=== PATIENT | male | born 1955 | race Caucasian/White ===

== ENCOUNTER 2016-08-08 20:32 | Emergency (ER) | payer SELFPAY ==
[~2016-08-08] VITALS: Ht 185.4 cm; Wt 75.0 kg
[~2016-08-08 20:32] MED LIST: FERR325T PO; MELO15TA2 PO; MIRA0.12 PO; OMEP20TA39 PO; VIAG100T PO
[2016-08-08 20:34] VITALS: BP 141/83; PULSE 74; RESP 16; TEMP 98.3; O2SAT 100
[2016-08-08] MEDS ORDERED: MEDR4PAK PO (21:20)
--- NOTE | 2016-08-08 21:20 | PD ---
HPI Chief Complaint: Skin Problem Time Seen by Provider: 21:17 Travel History International Travel<30 days: No Contact w/Intl Traveler<30days: No Traveled to known affect area: No History of Present Illness HPI 60-year-old male presents to the emergency department for evaluation of a skin eruption. Patient states it has been worsening over the last several weeks. It is scaly in nature. Plaques range in size. They're on his trunk, and extremities. He does not have a primary care provider nor has he sought dermatology evaluation. Denies any fever or chills. No new exposures. No chest or tightness. Patient has no significant medical history. He has no other symptoms to report. PFSH Past Medical History Cancer: No Cardiovascular Problems: Yes Diminished Hearing: No Endocrine: No Genitourinary: No Hypertension: Yes Immune Disorder: No Implanted Vascular Access Dvce: Yes Musculoskeletal: No Neurologic: Yes Psychiatric: No Reproductive: No Respiratory: No Integumentary: Yes (psoriasis) Past Surgical History Eye Surgery: Yes (lenses put in both eyes) Tonsillectomy: Yes Other Surgery: Yes Social History Alcohol Use: No ("SIX PACK OF BEER A DAY" QUIT 1 WK. AGO) Tobacco Use: Yes ("ONE PACK OF CIGARETTES A DAY") Substance Use: No Allergies-Medications (Allergen,Severity, Reaction): Coded Allergies: [place] (Verified Allergy, Intermediate, WEAKNESS, 08/08/16) Reported Meds & Prescriptions Reported Meds & Active Scripts Active Medrol Dosepak (Methylprednisolone) 4 Mg Dspk 4 Mg PO DIRECTED Per Pharmacist direction Omeprazole (Omeprazole) 20 Mg Tab 20 Mg PO DAILY Viagra (Sildenafil Citrate) 100 Mg Tab 100 Mg PO DIRECTED Take 1-4 hours prior to intercourse Mobic (Meloxicam) 15 Mg Tab 15 Mg PO DAILY PRN Iron (Ferrous Sulfate) 325 Mg Tab 325 Mg PO BID Mirapex (Pramipexole Dihydrochloride) 0.125 Mg Tab 0.125 Mg PO HS Review of Systems Except as stated in HPI: all other systems reviewed are Neg Physical Exam Narrative GENERAL: Well-nourished male patient, no acute distress SKIN: Warm and dry. Scattered scaly plaque like lesions, varying in size over the trunk and extremities. Mild erythema but blanchable. Duration. No vesicle or pustular formation. No drainage. HEAD: Atraumatic. Normocephalic. EYES: Pupils equal and round. No scleral icterus. No injection or drainage. ENT: No nasal bleeding or discharge. Mucous membranes pink and moist. NECK: Trachea midline. No JVD. CARDIOVASCULAR: Regular rate and rhythm. No murmur appreciated. RESPIRATORY: No accessory muscle use. Clear to auscultation. Breath sounds equal bilaterally. GASTROINTESTINAL: Abdomen soft, non-tender, nondistended. Hepatic and splenic margins not palpable. MUSCULOSKELETAL: No obvious deformities. No clubbing. No cyanosis. No edema. NEUROLOGICAL: Awake and alert. No obvious cranial nerve deficits. Motor grossly within normal limits. Normal speech. PSYCHIATRIC: Appropriate mood and affect; insight and judgment normal. Data Data Last Documented VS Vital Signs Date Time Temp Pulse Resp B/P Pulse Ox O2 Delivery O2 Flow Rate FiO2 08/08/16 20:34 98.3 74 16 141/83 100 MDM Medical Decision Making Medical Screen Exam Complete: Yes Emergency Medical Condition: Yes Medical Record Reviewed: Yes Differential Diagnosis Psoriasis versus contact dermatitis versus fungal infection versus erysipelas versus carcinoma Narrative Course 60-year-old male presents to the emergency department for evaluation. Patient has a scaly plaque-like eruption over his trunk and extremities. This is more consistent with a psoriasis however I have encouraged patient to follow-up with dermatology for further evaluation. He agrees to return immediately with any acute worsening symptoms. Diagnosis Primary Impression: Scaly patch rash Referrals: [facility] Phys[facility] Patient Instructions: General Instructions, Psoriasis (ED) Additional Instructions: Follow-up with primary care provider Seek dermatology evaluation Did not scratch at or pick your rash You may want to attempt an [id number] antifungal. Use as directed on the package Return immediately to the emergency department with any acute worsening of symptoms Med/Other Pt SpecificInfo: Prescription(s) given Scripts Methylprednisolone Dosepak (Medrol Dosepak)4 Mg Dspk4 Mg PO DIRECTED #1 DSPK Ref 0 Per Pharmacist direction Prov:Isamar Arnold 08/08/16 Disposition: 01 DISCHARGE HOME Condition: Stable Isamar Arnold Aug 08, 2016 21:20
== END 2016-08-08 21:28 | disposition home or self-care (01) ==
LOC: NEPB 20:32
DX: R21 Rash and other nonspecific skin eruption (principal); L40.9 Psoriasis, unspecified; I10 Essential (primary) hypertension
CPT/HCPCS: 99283

== ENCOUNTER 2017-10-20 14:38 | Emergency (ER) | payer SELFPAY ==
[~2017-10-20 14:38] MED LIST changes: +MEDR4PAK PO
[2017-10-20 14:43] VITALS: BP_SYST 101; BP_DIAS 56; BP_DIAS 6; PULSE 100; RESP 16; O2SAT 97
[2017-10-20] MEDS ORDERED: SODIUM CHLOR 0.9% 1000 ML INJ 1,000 ML IV SCH (17:47)
[2017-10-20] MEDS ORDERED: SODIUM CHLORIDE 0.9% FLUSH 10 ML FLUSH IV FLUSH PRN (18:00)
--- NOTE | 2017-10-20 18:01 | PD ---
HPI Chief Complaint: Medical Clearance Time Seen by Provider: 17:42 Travel History International Travel<30 days: No Contact w/Intl Traveler<30days: No Traveled to known affect area: No History of Present Illness HPI Patient is a 61-year-old male presenting to the emergency department for evaluation. Patient states that he "does not feel good". He reports generalized pain. He denies any shortness of breath, abdominal pain, nausea, vomiting. He reports a history of alcoholism but he states he has not had anything to drink since yesterday. Patient is not forthcoming with any further information. He does state that he is tired. PFSH Past Medical History Cardiovascular Problems: Yes Genitourinary: No Hypertension: Yes Immune Disorder: No Implanted Vascular Access Dvce: Yes Musculoskeletal: No Neurologic: Yes Psychiatric: No Reproductive: No Respiratory: No Integumentary: Yes (psoriasis) Past Surgical History Eye Surgery: Yes (lenses put in both eyes) Tonsillectomy: Yes Other Surgery: Yes Social History Alcohol Use: No ("SIX PACK OF BEER A DAY" QUIT 1 WK. AGO) Tobacco Use: Yes ("ONE PACK OF CIGARETTES A DAY") Substance Use: No Allergies-Medications (Allergen,Severity, Reaction): Coded Allergies: lithium (Unverified Allergy, Intermediate, WEAKNESS, 02/14/17) Reported Meds & Prescriptions Reported Meds & Active Scripts Active Medrol Dosepak (Methylprednisolone) 4 Mg Dspk 4 Mg PO DIRECTED Per Pharmacist direction Review of Systems Except as stated in HPI: all other systems reviewed are Neg General / Constitutional: Positive: Other (Fatigue) Musculoskeletal: Positive: Myalgias Physical Exam Narrative GENERAL: Thin, well-developed, drowsy male. SKIN: Warm and dry. HEAD: Atraumatic. Normocephalic. EYES: Pupils equal and round. No scleral icterus. No injection or drainage. ENT: No nasal bleeding or discharge. Mucous membranes pink and moist. NECK: Trachea midline. No JVD. CARDIOVASCULAR: Slightly tachycardic RESPIRATORY: No accessory muscle use. Clear to auscultation. Breath sounds equal bilaterally. GASTROINTESTINAL: Abdomen soft, non-tender, nondistended. Hepatic and splenic margins not palpable. MUSCULOSKELETAL: Extremities without clubbing, cyanosis, or edema. No obvious deformities. NEUROLOGICAL: Drowsy but arousable no obvious cranial nerve deficits. Motor grossly within normal limits. Five out of 5 muscle strength in the arms and legs. Normal speech. PSYCHIATRIC: Flat mood and affect; insight and judgment normal. Data Data Last Documented VS Vital Signs Date Time Temp Pulse Resp B/P (MAP) Pulse Ox O2 Delivery O2 Flow Rate FiO2 10/20/17 18:52 75 16 99 Room Air 10/20/17 14:43 101/56 (71) Orders Orders Complete Blood Count With Diff (10/20/17 14:46) Comprehensive Metabolic Panel (10/20/17 14:46) Drug Screen, Random Urine (10/20/17 14:46) Alcohol (Ethanol) (10/20/17 14:46) Salicylates (Aspirin) (10/20/17 14:46) Tylenol (Acetaminophen) (10/20/17 14:46) Lipase (10/20/17 17:47) Prothrombin Time / Inr (Pt) (10/20/17 17:47) Act Partial Throm Time (Ptt) (10/20/17 17:47) Urinalysis - C+S If Indicated (10/20/17 17:47) Iv Access Insert/Monitor (10/20/17 17:47) Ecg Monitoring (10/20/17 17:47) Oximetry (10/20/17 17:47) Sodium Chlor 0.9% 1000 Ml Inj (Ns 1000 M (10/20/17 17:47) Sodium Chloride 0.9% Flush (Ns Flush) (10/20/17 18:00) Creatine Kinase (Cpk) (10/20/17 17:47) Sodium Chlor 0.9% 1000 Ml Inj (Ns 1000 M (10/20/17 18:45) Labs Laboratory Tests Test 10/20/17 17:58 10/20/17 18:36 White Blood Count 6.1 TH/MM3 Red Blood Count 3.84 MIL/MM3 Hemoglobin 12.4 GM/DL Hematocrit 36.8 % Mean Corpuscular Volume 95.9 FL Mean Corpuscular Hemoglobin 32.3 PG Mean Corpuscular Hemoglobin Concent 33.7 % Red Cell Distribution Width 15.0 % Platelet Count 102 TH/MM3 Mean Platelet Volume 8.7 FL Neutrophils (%) (Auto) 65.1 % Lymphocytes (%) (Auto) 20.5 % Monocytes (%) (Auto) 12.4 % Eosinophils (%) (Auto) 1.5 % Basophils (%) (Auto) 0.5 % Neutrophils # (Auto) 3.9 TH/MM3 Lymphocytes # (Auto) 1.2 TH/MM3 Monocytes # (Auto) 0.8 TH/MM3 Eosinophils # (Auto) 0.1 TH/MM3 Basophils # (Auto) 0.0 TH/MM3 CBC Comment DIFF FINAL Differential Comment Urine Color LIGHT-BROWN Urine Turbidity CLEAR Urine pH 7.0 Urine Specific [place] 1.017 Urine Protein 30 mg/dL Urine Glucose (UA) NEG mg/dL Urine Ketones NEG mg/dL Urine Occult Blood NEG Urine Nitrite NEG Urine Bilirubin SMALL Urine Urobilinogen 8.0 MG/DL Urine Leukocyte Esterase MOD Urine WBC 5 /hpf Urine Squamous Epithelial Cells 1 /hpf Urine Hyaline Casts 2 /lpf Microscopic Urinalysis Comment CULT NOT INDICATED Blood Urea Nitrogen 10 MG/DL Creatinine 0.85 MG/DL Random Glucose 69 MG/DL Total Protein 5.7 GM/DL Albumin 2.6 GM/DL Calcium Level 8.9 MG/DL Alkaline Phosphatase 128 U/L Aspartate Amino Transf (AST/SGOT) 138 U/L Alanine Aminotransferase (ALT/SGPT) 94 U/L Total Bilirubin 2.4 MG/DL Sodium Level 134 MEQ/L Potassium Level 3.5 MEQ/L Chloride Level 97 MEQ/L Carbon Dioxide Level 28.5 MEQ/L Anion Gap 9 MEQ/L Estimat Glomerular Filtration Rate 92 ML/MIN Salicylates Level LESS THAN 1.7 MG/DL Urine Opiates Screen NEG Acetaminophen Level LESS THAN 2.0 MCG/ML Urine Barbiturates Screen NEG Urine Amphetamines Screen NEG Urine Benzodiazepines Screen POS Urine Cocaine Screen NEG Urine Cannabinoids Screen NEG Ethyl Alcohol Level LESS THAN 3 MG/DL Prothrombin Time 11.8 SEC Prothromb Time International Ratio 1.2 RATIO Activated Partial Thromboplast Time 21.2 SEC MDM Medical Decision Making Medical Screen Exam Complete: Yes Emergency Medical Condition: Yes Medical Record Reviewed: Yes Interpretation(s) Vital Signs Date Time Temp Pulse Resp B/P (MAP) Pulse Ox O2 Delivery O2 Flow Rate FiO2 10/20/17 14:43 100 16 101/56 (33) 97 Differential Diagnosis Viral syndrome versus metabolic abnormality versus mood disorder versus psychosis versus other Narrative Course Patient is a 7-year-old male presented to emergency department with a vague complaint of not feeling well. Labs ordered and pending. Patient was slightly hypotensive and mildly tachycardic on arrival. Patient was given 2 L of IV fluids. Care of patient transferred to my attending physician who will determine patient 's disposition. Laine Morales [facility] Oct 20, 2017 18:01
[2017-10-20 18:18] LABS: AUTOMATED NEUTROPHIL # 3.9 TH/MM3 (1.8-7.7); BASOPHIL % 0.5 % (0.0-2.0); EOSINOPHIL # 0.1 TH/MM3 (0-0.4); EOSINOPHIL % 1.5 % (0.0-4.0); HEMATOCRIT 36.8 % (39.0-51.0); HEMOGLOBIN 12.4 GM/DL (13.0-17.0); LYMPH % 20.5 % (9.0-44.0); LYMPHOCYTE # 1.2 TH/MM3 (1.0-4.8); MEAN CELL VOLUME 95.9 FL (80.0-100.0); MEAN CORPUSCULAR HEMOGLOBIN 32.3 PG (27.0-34.0); MEAN CORPUSCULAR HGB CONC 33.7 % (32.0-36.0); MEAN PLATELET VOLUME 8.7 FL (7.0-11.0); MONO % 12.4 % (0.0-8.0); MONOCYTE # 0.8 TH/MM3 (0-0.9); NEUT % 65.1 % (16.0-70.0); PLATELET COUNT 102 TH/MM3 (150-450); RED BLOOD COUNT 3.84 MIL/MM3 (4.50-5.90); WHITE BLOOD COUNT 6.1 TH/MM3 (4.0-11.0)
[2017-10-20 18:27] LABS: BILIRUBIN, URINE SMALL (NEG); BLOOD, URINE NEG (NEG); GLUCOSE,URINE NEG (NEG); HYALINE CAST, URINE 2 /lpf (RARE); KETONE, URINE NEG (NEG); NITRITE,URINE NEG (NEG); SQUAMOUS EPITHELIAL CELL URINE 1 /hpf (0-5); URINE LEUKOCYTE ESTERASE MOD (NEG)
[2017-10-20 18:30] LABS: URINE COLOR LIGHT-BROWN (YELLW/STRAW)
[2017-10-20 18:32] LABS: ALBUMIN 2.6 GM/DL (3.4-5.0); AST (GOT) 138 U/L (15-37); BICARBONATE 28.5 MEQ/L (21.0-32.0); BLOOD UREA NITROGEN 10 MG/DL (7-18); CALCIUM 8.9 MG/DL (8.5-10.1); CHLORIDE 97 MEQ/L (98-107); CREATININE 0.85 MG/DL (0.60-1.30); GLOMERULAR FILTRATION RATE 92 ML/MIN (>89); GLUCOSE,RANDOM 69 MG/DL (74-106); SODIUM (NA) 134 MEQ/L (136-145)
[2017-10-20 18:35] LABS: ACETAMINOPHEN LESS THAN 2.0 MCG/ML (10.0-30.0); ALKALINE PHOSPHATASE 128 U/L (45-117); ALT (GPT) 94 U/L (12-78); TOTAL BILIRUBIN ADULT 2.4 MG/DL (0.2-1.0); TOTAL PROTEIN 5.7 GM/DL (6.4-8.2)
[2017-10-20 18:45] VITALS: O2SAT 99
[2017-10-20] MEDS ORDERED: SODIUM CHLOR 0.9% 1000 ML INJ 1,000 ML IV ONE (18:45)
[2017-10-20 18:52] VITALS: PULSE 75; RESP 16; O2SAT 99
[2017-10-20 19:05] LABS: INTERNATIONAL NORMALIZED RATIO 1.2 RATIO; PROTHROMBIN TIME - PATIENT 11.8 SEC (9.8-11.6)
[2017-10-20 19:21] VITALS: TEMP 97.8
--- NOTE | 2017-10-20 19:34 | PD ---
Data Data Last Documented VS Vital Signs Date Time Temp Pulse Resp B/P (MAP) Pulse Ox O2 Delivery O2 Flow Rate FiO2 10/20/17 19:51 78 16 118/71 (87) 98 10/20/17 19:21 97.8 10/20/17 18:52 Room Air Orders Orders Complete Blood Count With Diff (10/20/17 14:46) Comprehensive Metabolic Panel (10/20/17 14:46) Drug Screen, Random Urine (10/20/17 14:46) Alcohol (Ethanol) (10/20/17 14:46) Salicylates (Aspirin) (10/20/17 14:46) Tylenol (Acetaminophen) (10/20/17 14:46) Lipase (10/20/17 17:47) Prothrombin Time / Inr (Pt) (10/20/17 17:47) Act Partial Throm Time (Ptt) (10/20/17 17:47) Urinalysis - C+S If Indicated (10/20/17 17:47) Iv Access Insert/Monitor (10/20/17 17:47) Ecg Monitoring (10/20/17 17:47) Oximetry (10/20/17 17:47) Sodium Chlor 0.9% 1000 Ml Inj (Ns 1000 M (10/20/17 17:47) Sodium Chloride 0.9% Flush (Ns Flush) (10/20/17 18:00) Creatine Kinase (Cpk) (10/20/17 17:47) Sodium Chlor 0.9% 1000 Ml Inj (Ns 1000 M (10/20/17 18:45) Ed Discharge Order (10/20/17 19:34) Labs Laboratory Tests Test 10/20/17 17:58 10/20/17 18:36 White Blood Count 6.1 TH/MM3 Red Blood Count 3.84 MIL/MM3 Hemoglobin 12.4 GM/DL Hematocrit 36.8 % Mean Corpuscular Volume 95.9 FL Mean Corpuscular Hemoglobin 32.3 PG Mean Corpuscular Hemoglobin Concent 33.7 % Red Cell Distribution Width 15.0 % Platelet Count 102 TH/MM3 Mean Platelet Volume 8.7 FL Neutrophils (%) (Auto) 65.1 % Lymphocytes (%) (Auto) 20.5 % Monocytes (%) (Auto) 12.4 % Eosinophils (%) (Auto) 1.5 % Basophils (%) (Auto) 0.5 % Neutrophils # (Auto) 3.9 TH/MM3 Lymphocytes # (Auto) 1.2 TH/MM3 Monocytes # (Auto) 0.8 TH/MM3 Eosinophils # (Auto) 0.1 TH/MM3 Basophils # (Auto) 0.0 TH/MM3 CBC Comment DIFF FINAL Differential Comment Urine Color LIGHT-BROWN Urine Turbidity CLEAR Urine pH 7.0 Urine Specific [place] 1.017 Urine Protein 30 mg/dL Urine Glucose (UA) NEG mg/dL Urine Ketones NEG mg/dL Urine Occult Blood NEG Urine Nitrite NEG Urine Bilirubin SMALL Urine Urobilinogen 8.0 MG/DL Urine Leukocyte Esterase MOD Urine WBC 5 /hpf Urine Squamous Epithelial Cells 1 /hpf Urine Hyaline Casts 2 /lpf Microscopic Urinalysis Comment CULT NOT INDICATED Blood Urea Nitrogen 10 MG/DL Creatinine 0.85 MG/DL Random Glucose 69 MG/DL Total Protein 5.7 GM/DL Albumin 2.6 GM/DL Calcium Level 8.9 MG/DL Alkaline Phosphatase 128 U/L Aspartate Amino Transf (AST/SGOT) 138 U/L Alanine Aminotransferase (ALT/SGPT) 94 U/L Total Bilirubin 2.4 MG/DL Sodium Level 134 MEQ/L Potassium Level 3.5 MEQ/L Chloride Level 97 MEQ/L Carbon Dioxide Level 28.5 MEQ/L Anion Gap 9 MEQ/L Estimat Glomerular Filtration Rate 92 ML/MIN Salicylates Level LESS THAN 1.7 MG/DL Urine Opiates Screen NEG Acetaminophen Level LESS THAN 2.0 MCG/ML Urine Barbiturates Screen NEG Urine Amphetamines Screen NEG Urine Benzodiazepines Screen POS Urine Cocaine Screen NEG Urine Cannabinoids Screen NEG Ethyl Alcohol Level LESS THAN 3 MG/DL Prothrombin Time 11.8 SEC Prothromb Time International Ratio 1.2 RATIO Activated Partial Thromboplast Time 21.2 SEC Total Creatine Kinase 83 U/L Lipase 59 U/L [facility] Medical Record Reviewed: Yes Supervised Visit with DAREN: Yes Narrative Course CBC & BMP Diagram 10/20/17 17:58 Total Protein 5.7 L, Albumin 2.6 L, Calcium Level 8.9, Alkaline Phosphatase 128 H, Aspartate Amino Transf (AST/SGOT) 138 H, Alanine Aminotransferase (ALT/SGPT) 94 H, Total Bilirubin 2.4 H The patient is resting comfortably and feels better, is alert and in no distress. The patients results and examination findings were discussed. The repeat examination is unremarkable and benign. The history, exam, diagnostic testing, and current condition do not suggest any significant pathology to warrant further testing, continued ED treatment, admission, or surgical evaluation at this point. The vital signs have been stable. The patient does not have uncontrollable pain, intractable vomiting, or other significant symptoms. The patient's condition is stable and appropriate for discharge. The patient will pursue further outpatient evaluation with a primary care physician or other designated or consulting physician as indicated in the discharge instructions. The patient expressed understanding and was agreeable with this plan. Diagnosis Primary Impression: Alcoholism /alcohol abuse Additional Impression: Transaminitis Med/Other Pt SpecificInfo: No Meds Exist/No RX given Disposition: 01 DISCHARGE HOME Condition: Stable Levi Thompson MD Oct 20, 2017 19:34
[2017-10-20 19:51] VITALS: BP 118/71; PULSE 78; RESP 16; O2SAT 98
[2017-10-21 03:00] VITALS: BP 132/68; PULSE 70; RESP 16; O2SAT 99
== END 2017-10-21 06:24 | disposition home or self-care (01) ==
LOC: NEPD 14:38 → NEDAMB 10-21 06:24
DX: F10.20 Alcohol dependence, uncomplicated (principal); R74.0 Nonspecific elevation of levels of transaminase and lactic acid dehydrogenase [LDH]; R00.0 Tachycardia, unspecified; F17.210 Nicotine dependence, cigarettes, uncomplicated; Y90.0 Blood alcohol level of less than 20 mg/100 ml
CPT/HCPCS: 80053; 80307; 81001; 82550; 83690; 85025; 85610; 85730; 96360; 99284; J7030